=== PATIENT | male | born 1985 | race Caucasian/White ===

== ENCOUNTER 2020-12-24 10:12 | Emergency (ER) | payer SELFPAY ==
[~2020-12-24] VITALS: Ht 167.6 cm; Wt 70.3 kg
[2020-12-24 10:12] VITALS: BP 118/80
[2020-12-24] MEDS ORDERED: ERYTHROMYCIN3.5 GM BOTH EYES (10:20)
[2020-12-24] MEDS ORDERED: CLINDAMYCIN HC300 MG ORAL (10:20)
[2020-12-24 10:21] VITALS: BP 114/72
--- NOTE | 2020-12-24 10:29 | NUR ---
examined by dr richey discharged home with instruction to follow up with [facility] homeless [facility] provided to patients food andjuice provided . patient refuses the residential
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
== END 2020-12-24 10:32 | disposition home or self-care (01) ==
LOC: EDBD 10:12 → EMR 10:28
DX: H10.213 Acute toxic conjunctivitis, bilateral (principal); L02.414 Cutaneous abscess of left upper limb
CPT/HCPCS: 99282